=== PATIENT | male | born 1995 | race Caucasian/White ===

== ENCOUNTER 2017-07-16 01:50 | Emergency (ER) | payer OTHER ==
[2017-07-16 01:57] VITALS: BP 108/94
--- NOTE | 2017-07-16 01:58 | EDPHY ---
H & P Time Seen by Provider: 07/16/17 01:54 HPI/ROS: Chief Complaint: Med clearance, alcohol intoxication, tazed HPI: 22-year-old intoxicated male was involved in an altercation with police. Patient began fighting with the police and was tazed. He had 2 Taser barbs in his back which were removed. Patient has been agitated, awake and alert per police. He is currently without complaint. Admits to drinking alcohol but denies any other drug use. Did not hit his head. No extremity injuries or pain. No chest pain or back pain. No nausea or vomiting. He is being brought in for medical clearance. ROS: 10 point Review of Systems is negative except as noted in the HPI. PMH: Denies Social History: Positive smoking, positive alcohol, no recreational drug use Family History: non-contributory Physical Exam: Gen: Awake, Alert, No Distress HEENT: Nose: no rhinorrhea Eyes: PERRLA, EOMI Mouth: Moist mucosa Neck: Supple, no JVD Chest: nontender, lungs clear to auscultation Heart: S1, S2 normal, no murmur Abd: Soft, non-tender, no guarding Back: no CVA tenderness, no midline tenderness patient has 2 puncture wounds in his left upper back consistent with Taser charles points. There is no erythema. There is no discharge. They are nontender. Ext: no edema, non-tender Skin: no rash Neuro: CN II-XII intact, Sensation grossly intact, Strength 5/5 in bilateral upper and lower extremities - Medical/Surgical History Hx Asthma: No Hx Chronic Respiratory Disease: No Hx Diabetes: No Hx Cardiac Disease: No Hx Renal Disease: No Hx Cirrhosis: No Hx Alcoholism: No Hx HIV/AIDS: No Hx Splenectomy or Spleen Trauma: No Other PMH: Concussions - Social History Smoking Status: Current every day smoker Constitutional: Initial Vital Signs Temperature (C) 36.7 C 07/16/17 01:55 Heart Rate 123 H 07/16/17 01:55 Respiratory Rate 18 07/16/17 01:55 Blood Pressure 108/94 H 07/16/17 01:55 O2 Sat (%) 93 07/16/17 01:55 O2 Delivery Mode Room Air Allergies/Adverse Reactions: No Known Allergies Allergy (Verified 07/16/17 01:54) Home Medications: Medication Instructions Recorded NK [No Known Home Meds] 12/06/14 Medical Decision Making ED Course/Re-evaluation: 22-year-old male status post being [place] by police. These are barbs or removed. He has 2 puncture wounds but otherwise unremarkable exam. Patient is agitated and I suspect there might be other substances on board other than alcohol. He is in no distress. He is medically clear for [facility]ci. Departure - Departure Disposition: Law Enforcement/Court/[facility] Clinical Impression: Taser injury, Alcoholic intoxication Condition: Good Instructions: Alcohol Intoxication (ED), Care After Taser Removal (ED) Additional Instructions: MEDICALLY CLEAR FOR HALFWAY Referrals: NONE *PRIMARY CARE P,. [Primary Care Provider] - As per Instructions
== END 2017-07-16 02:18 ==
DX: F10.129 Alcohol abuse with intoxication, unspecified (principal); T75.4XXA Electrocution, initial encounter; F17.200 Nicotine dependence, unspecified, uncomplicated